=== PATIENT | female | born 1935 | race American Indian/Alaskan Native ===

== ENCOUNTER 2016-11-18 06:08 | Day surgery (SDC) | payer MEDICARE ==
[~2016-11-18 06:08] MED LIST: TETRACAINE 0.5% OS SCH
[2016-11-18] MEDS ORDERED: VERSED ONE (07:21)
[2016-11-18] MEDS ORDERED: SUBLIMAZE ONE (07:22)
[2016-11-18] MEDS: AK-Dilate OS SCH ×3 (07:25→07:35)
[2016-11-18] MEDS: VIGAMOX OS SCH ×3 (07:25→07:35)
[2016-11-18] MEDS: MYDRIACYL OS SCH ×3 (07:25→07:35)
--- NOTE | 2016-11-18 07:25 | Anesthesia Consultation ---
Anesthesia Consult and Med Hx Date of service: 11/18/16 - Airway Anesthetic Teeth Evaluation: Dentures, Edentulous ROM Head & Neck: Adequate Mental/Hyoid Distance: Adequate Mallampati Class: Class II Intubation Access Assessment: Probably Good - Pulmonary Exam CTA: Yes - Cardiac Exam Cardiac Exam: RRR - Pre-Operative Health Status ASA Pre-Surgery Classification: ASA3 Proposed Anesthetic Plan: MAC - Pulmonary Hx Smoking: No Hx Sleep Apnea: No - Cardiovascular System Hx Hypertension: Yes (FOR 20+ YRS, DR. WATKINS- PCP) - Central Nervous System Hx Psychiatric Problems: No - Gastrointestinal Hx Gastroesophageal Reflux Disease: Yes - Other Systems Hx Alcohol Use: No Hx Substance Use: No Hx Cancer: Yes ([facility], DX: [place] 1995)
--- NOTE | 2016-11-18 07:26 | Anesthesia Day of Surgery ---
Anesthesia Day of Surgery - Day of Surgery Patient Examined: Yes Patient H&P Reviewed: Yes Patient is NPO: Yes
[2016-11-18] MEDS ORDERED: NACL P/F VIAL (10 ML) 10 ML ONE (08:08)
[2016-11-18] MEDS ORDERED: ADRENALINE P/F IO ONE (08:20)
--- NOTE | 2016-11-18 09:17 | Operative Report ---
Operative Report Operative Report: PATIENT'S NAME: DATE OF : DATE OF SURGERY: 11/18/2016 PREOPERATIVE DIAGNOSIS: Cataract and Astigmatism left Eye POSTOPERATIVE DIAGNOSIS: Same OPERATIVE PROCEDURE: Phacoemulsification with intraocular lens implantation, left eye Toric SURGEON: Chantal Steward M.D. LENS: [id number] 19.0 at 30 ANESTHESIA: Monitored anesthesia care in combination with topical and intracameral anesthesia because of the established specific risk of reflux, arrhythmias, or anxiety attacks associated with ocular manipulation, as well as the difficulty of the floor clerk to manage such potentially catastrophic events while simultaneously attempting to complete the surgical procedure and was deemed necessary for the patient's safety to have a Nurse Medical Instructor present during the procedure whenever possible. A Nurse Medical Instructor was utilized to regulate the intravenous sedation of the patient so the patient was cooperative yet not asleep in order for the patient to successfully maintain fixation of the eye on the operating light of the microscope. COMPLICATIONS: No surgical complications. No blood loss. ALLERGIES:No known drug allergies PROGNOSIS: Excellent INDICATIONS FOR SURGERY: The patient is undergoing surgery in the hopes of eliminating or improving these visual difficulties. PROCEDURE: After arriving at the surgery center, the patient was given topical anesthetic and dilating drops, as noted in the record. The patient was then taken into the operating room and given more anesthetic drops. The eyelids , lashes, and lid margins were scrubbed with Betadine solution, and the patient was draped. The Nurse Medical Instructor administered IV sedation and monitored the patient during the procedure. A speculum was placed between the eyelids, and the patient was asked to fixate on the light of the microscope. The patient has been noted to have pre-existing astigmatism as well as a concern to be left with as little astigmatism as possible after surgery in order to improve their uncorrected visual acuity after surgery.~ They have, therefore, elected to have our option for astigmatism management and have signed a waiver acknowledging their understanding of the process, its benefits and risks, and wish to proceed with this option. Based on the preoperative evaluation of the topography of their corneal mapping of astigmatism, the wound orientation, wound size, and use of a relaxing incision have been utilized to minimize their post operative astigmatism. In some cases a toric, or astigmatic , intraocular lens implant may be used in conjunction with a relaxing incision or in place of one. When an astigmatic lens is used, preoperative evaluation of the topography with careful planning of the lens position and power of the astigmatic correction by lens are all done. ~The calculation of the lens power for the astigmatic correction and the lens orientation of the astigmatic lens is performed separately and subsequently from the normal lens power calculation for the standard cataract lens power needed for standard surgery without astigmatism management. ~In fact, the toric lens power calculation can not be done until the standard lens power calculations are performed and finished - so that is a totally separate part of the preoperative planning. The eye was then fixated with a round stark, which would damage the conjunctival tissues or vessel, and a stab incision was made in the peripheral clear cornea into the anterior chamber. Viscoelastic was next used to fill the anterior chamber. The eye was once again fixated with the round stark and a keratome was used make an incision in clear cornea peripherally on my right hand side temporally. Hydrodissection was carried out utilizing a U-shaped cannula and balanced salt solution to delineate the cortical material from the capsule and the nucleus from the cortical material. The phaco tip was introduced into the eye and used to remove the anterior cortical material in the area of the capsulotomy. Then the phaco tip was buried into the nucleus, and a chopping instrument was introduced into the eye and used to provide countertraction in the nucleus between this instrument and the phaco tip fracturing the nucleus. This procedure was repeated multiple times, providing multiple small segments of the lens, and then the phaco tip was used to remove each of these segments. An I/A tip was then used to remove the remaining cortex. An one-piece, acrylic intraocular lens was then placed into an inserting cartridge. The tip of the inserting cartridge was introduced into the keratome incision and into the anterior chamber. The implant was gently advanced through the cartridge and into the eye, where it unfolded, and both haptics were placed in the capsular bag, where it centered nicely and appeared to be well fixated. Prior to prepping the patient, the patient was asked to sit up on the operative bed and look across the room. ~Utilizing a special marking instrument, the cardinal meridians at 3:00, 6:00, and 9:00 were marked with Gentian thad.~ These leach were used later in the surgery as reference leach to identify the proper location of the axis for the placement of the astigmatic, or toric, intraocular lens.~ The axis was marked with Gentian thad prior to entering the eye.~ After placement of the intraocular lens implant and removal of the viscoelastic from both the capsular bag and anterior chamber, the lens was positioned so it was perfectly aligned along this axis. The orientation was rechecked once the wounds were hydrated and the integrity of the wounds was verified. After placement of the intraocular lens, the I~and~A handpiece was placed back into the eye and used to remove the viscoelastic, including viscoelastic that was behind the optic of the intraocular lens. The anterior chamber was then filled with balanced salt solution, and hydration of the wound was used to cause swelling of the wound and more appropriate watertight closure. When the wound was found to be firm, the patient was asked to comment on how bright the light was. If there was no light perception at all or if the light was substantially dimmer than during the rest of the surgery, the amount of fluid in the eye was decompressed to lower the intraocular pressure until the patient could see the bright light again. This was done to avoid any damage or decreased blood flow to the optic nerve. MEDICATIONS APPLIED AT END OF SURGERY: One drop vigamox and Pred Forte The patient was given a shield to wear at night and was instructed not to rub or push on the eye. DISCHARGE SUMMARY: The patient was released in stable condition. The patient and those with the patient were given a written sheet of postoperative instructions and counseling on any abnormal laboratory studies. The patient is to see us tomorrow for follow-up in the office and is to call immediately for any difficulties. Chantal Steward M.D. Date
--- NOTE | 2016-11-18 09:18 | Short Stay Summary ---
Short Stay Documentation Date of service: 11/18/16 - History H&P: obtained from office - Allergies and Medications Current Medications: Allergies No Known Allergies Allergy (Unverified 01/14/14 10:47) Home Medications Medication Instructions Recorded Confirmed Last Taken Type Hydroxychloroquine [Plaquenil] 200 mg PO BID 03/08/16 11/15/16 11/17/16 History Latanoprost 0.005% [Xalatan 0.005%] 1 drop OP QPM 03/08/16 11/15/16 11/17/16 History Ranitidine HCl [Zantac 150 MG TAB] 150 mg PO BID 03/08/16 11/15/16 11/17/16 History amLODIPine [Norvasc] 5 mg PO DAILY 03/08/16 11/15/16 11/17/16 History Active Medications Moxifloxacin HCl (Vigamox) 1 drops OS Q5MIN LIONEL Stop: 11/20/16 06:01 Last Admin: 11/18/16 07:35 Dose: 1 drops Phenylephrine HCl (Ak-Dilate) 1 drops OS Q5MIN LIONEL Stop: 11/18/16 23:59 Last Admin: 11/18/16 07:35 Dose: 1 drops Prednisolone Acetate (Pred Forte 1%) 1 drops OS QID LIONEL Tetracaine HCl (Tetracaine 0.5%) 1 drops OS ONCE LIONEL Stop: 11/18/16 23:59 Last Admin: 11/18/16 07:25 Dose: 1 drops Tropicamide (Mydriacyl) 1 drops OS Q5MIN LIONEL Stop: 11/18/16 23:59 Last Admin: 11/18/16 07:35 Dose: 1 drops - Brief post op/procedure progress note Date of procedure: 11/18/16 Pre-op diagnosis: cataract and astigmatism left eye Post-op diagnosis: same Procedure: Phacoemulsification with toric lens insertion left eye Anesthesia: MAC Surgeon: CYN RUBI Estimated blood loss: none Pathology: none Condition: stable - Disposition Condition at discharge: Good Disposition: DC-01 TO HOME OR SELFCARE - Discharge Diagnoses (1) Astigmatism of left eye Status: Resolved Qualifiers: Astigmatism type: regular Qualified Code(s): H52.222 - Regular astigmatism , left eye (2) Cataract Status: Resolved Qualifiers: Age-related cataract type: nuclear Infantile/juvenile cataract type: I Traumatic cataract type: T Secondary cataract type: S Laterality: left Short Stay Discharge Plan Follow up with: RAY WATKINS MD [Primary Care Provider] - 7 Days Forms: [facility]
--- NOTE | 2016-11-18 09:19 | Post Anesthesia Evaluation ---
- Post Anesthesia Evaluation Patient Participated: Yes Airway Patent: Yes Stable Respiratory Function: Yes Nausea/Vomiting: No Temp > 96.8F: Yes Pain Manageable: Yes Adequeate Hydration: Yes Anesthesia Complications: No
[2016-11-18] MEDS ORDERED: PRED FORTE 1% OS SCH (10:00)
[2016-11-18] MEDS ORDERED: ADRENALINE P/F ONE (10:00)
[2016-11-18 18:40] VITALS: BP 136/80
== END 2016-11-18 09:20 | disposition home or self-care (01) ==
LOC: OR 06:08
DX: H26.9 Unspecified cataract (principal); H52.202 Unspecified astigmatism, left eye; M19.90 Unspecified osteoarthritis, unspecified site; I10 Essential (primary) hypertension; K21.9 Gastro-esophageal reflux disease without esophagitis; Z79.899 Other long term (current) drug therapy; Z85.038 Personal history of other malignant neoplasm of large intestine
CPT/HCPCS: 66984; J0171; J2250; J3010; V2630

== ENCOUNTER 2017-06-01 13:50 | Outpatient (CLI) | payer MEDICARE ==
--- NOTE | 2017-06-01 15:45 | XRay Report ---
FINAL REPORT EXAM: XR SPINE CERVICAL 4-5V HISTORY: NUMBNESS, Tingling TECHNIQUE: Five views cervical spine. PRIORS: None currently available. FINDINGS: Grade 1 posterior subluxations C4-C6. severe degenerative discs at C3-C7. Suspect ankylosis at C4-C6. There straightening of the normal lordotic alignment. There may be some mild grade 1 posterior subluxations at C4-C6. Mild grade 1 anterior subluxation at C7-T1 and mild grade 1 posterior subluxation at C3-C4. No fracture. Prevertebral soft tissues are unremarkable. Bilateral neural foraminal narrowing identified. No scoliosis. No suspicious osseous lesions. No vertebral anomalies. Lateral masses of C1 are aligned with C2. IMPRESSION: Multilevel degenerative discs. Suspect ankylosis at C4-C6.
--- NOTE | 2017-06-09 18:06 | Vascular Lab Report ---
CAROTID DUPLEX STUDY: RIGHT PSVEDV CCA PROX:[id number] CCA DIST:5414 ICA PROX:5415 ICA MID:5117 ICA DIST:9231 ECA: 33 VERT: 39 12 LEFT PSVEDV CCA PROX:8020 CCA DIST:5415 ICA PROX:6916 ICA MID:5618 ICA DIST:8730 ECA: 50 VERT: 33 9 REASON FOR EXAM: Numbness and tingling. COMMENTS ON THE RIGHT: Doppler frequency analysis is consistent with 16 to 49 percent diameter reduction of the internal carotid artery. Minimal amount of plaque is seen. The common carotid artery is patent. The external carotid artery is patent. The vertebral artery has antegrade flow. COMMENTS ON THE LEFT: Doppler frequency analysis is consistent with 16 to 49 percent diameter reduction of the internal carotid artery. Minimal amount of plaque is seen. The common carotid artery is patent. The external carotid artery is patent. The vertebral artery has antegrade flow. IMPRESSION: Less than 50% diameter reduction in the internal carotid arteries bilaterally.
== END 2017-06-01 13:51 | disposition home or self-care (01) ==
LOC: VAS 13:50
PROVIDERS: ATTEND Internal Medicine
DX: I65.23 Occlusion and stenosis of bilateral carotid arteries (principal); S13.150A Subluxation of C4/C5 cervical vertebrae, initial encounter; S13.160A Subluxation of C5/C6 cervical vertebrae, initial encounter; S13.140A Subluxation of C3/C4 cervical vertebrae, initial encounter; M50.31 Other cervical disc degeneration, high cervical region; X58.XXXA Exposure to other specified factors, initial encounter; Y93.89 Activity, other specified; Y92.89 Other specified places as the place of occurrence of the external cause; Y99.8 Other external cause status
CPT/HCPCS: 72050; 93880

== ENCOUNTER 2019-02-08 09:20 | Outpatient (CLI) | payer MEDICARE ==
--- NOTE | 2019-02-08 13:36 | Mammography Report ---
DIGITAL SCREENING MAMMOGRAM WITH CAD, 02/08/2019 INDICATION: Routine screening mammography. TECHNIQUE: Digital bilateral 2D mammography was obtained in the craniocaudal and mediolateral obliq ue projections. This examination was interpreted with the benefit of Computer-Aided Detection analysi s. COMPARISON: 02/07/2018 FINDINGS: Breast Density: There are scattered areas of fibroglandular density. There is no evidence of dominant mass, suspicious calcifications or architectural distortion in eithe r breast. A 6 mm . benign right outer calcified mass is new compared to the last exam. IMPRESSION: No mammographic evidence of malignancy. Follow up recommendation: Routine yearly BI-RADS Category 2: Benign. A "normal" or negative report should not discourage follow up or biopsy of a clinically significant f inding. A written summary of these findings will be mailed to the patient. The patient will be entered into a mammography reporting system which will generate a reminder letter for the patient's next appointmen t at the appropriate interval. The [employer] recommends yearly mammograms starting at age 40 and continuing as l cintia as a woman is in good health. Breast MRI is recommended for women with an approximate 20-25% or greater lifetime risk of breast cancer, including women with a strong family history of breast or ova herson cancer or who have been treated for Hodgkin's disease. Signer Name: Davin Rayo MD Signed: 02/08/2019 1:32 PM Workstation Name: [id number]
== END 2019-02-08 09:21 | disposition home or self-care (01) ==
LOC: MAMMO 09:20
PROVIDERS: ATTEND Internal Medicine
DX: Z12.31 Encounter for screening mammogram for malignant neoplasm of breast (principal); K21.9 Gastro-esophageal reflux disease without esophagitis; I10 Essential (primary) hypertension; M19.90 Unspecified osteoarthritis, unspecified site
CPT/HCPCS: 77067

== ENCOUNTER 2020-02-22 10:30 | Outpatient (CLI) | payer MEDICARE ==
--- NOTE | 2020-02-25 08:34 | Mammography Report ---
DIGITAL SCREENING MAMMOGRAM WITH CAD, 02/22/2020 CLINICAL INFORMATION / INDICATION: Routine screening mammography. TECHNIQUE: Digital bilateral 2D mammography was obtained in the craniocaudal and mediolateral obliqu e projections. This examination was interpreted with the benefit of Computer-Aided Detection analysis . COMPARISON: 02/08/2019, 02/07/2018 FINDINGS: Breast Density: There are scattered areas of fibroglandular density. No dominant mass, suspicious calcifications, or architectural distortion in either breast. IMPRESSION: No mammographic evidence of malignancy. Follow up recommendation: Routine yearly BI-RADS Category 1: Negative. A "normal" or negative report should not discourage follow up or biopsy of a clinically significant f inding. A written summary of these findings will be mailed to the patient. The patient will be entered into a mammography reporting system which will generate a reminder letter for the patient's next appointmen t at the appropriate interval. The [employer] recommends yearly mammograms starting at age 40 and continuing as l cintia as a woman is in good health. Breast MRI is recommended for women with an approximate 20-25% or greater lifetime risk of breast cancer, including women with a strong family history of breast or ova herson cancer or who have been treated for Hodgkin's disease. Signer Name: Donn Mendez MD Signed: 02/25/2020 8:29 AM Workstation Name: [id number]
== END 2020-02-22 10:31 | disposition home or self-care (01) ==
LOC: MAMMO 10:30
PROVIDERS: ATTEND Internal Medicine
DX: Z12.31 Encounter for screening mammogram for malignant neoplasm of breast (principal)
CPT/HCPCS: 77067

== ENCOUNTER 2021-02-23 08:57 | Outpatient (CLI) | payer MEDICARE ==
--- NOTE | 2021-02-24 08:18 | Mammography Report ---
DIGITAL SCREENING MAMMOGRAM WITH CAD, 02/23/2021 CLINICAL INFORMATION / INDICATION: Routine screening mammography. SCREENING MAMMOGRAM TECHNIQUE: Digital bilateral 2D mammography was obtained in the craniocaudal and mediolateral obliqu e projections. This examination was interpreted with the benefit of Computer-Aided Detection analysis . COMPARISON: 02/22/2020 FINDINGS: Breast Density: The breasts are heterogeneously dense, which may obscure small masses. No dominant mass, suspicious calcifications, or architectural distortion in either breast. Partially calcified nodule in the posterior depth right breast again noted. IMPRESSION: No mammographic evidence of malignancy. Follow up recommendation: Routine yearly BI-RADS Category 2: Benign. A "normal" or negative report should not discourage follow up or biopsy of a clinically significant f inding. A written summary of these findings will be mailed to the patient. The patient will be entered into a mammography reporting system which will generate a reminder letter for the patient's next appointmen t at the appropriate interval. The [employer] recommends yearly mammograms starting at age 40 and continuing as l cintia as a woman is in good health. Breast MRI is recommended for women with an approximate 20-25% or greater lifetime risk of breast cancer, including women with a strong family history of breast or ova herson cancer or who have been treated for Hodgkin's disease. Signer Name: Parviz Rick MD Signed: 02/24/2021 8:14 AM Workstation Name: [id number]
== END 2021-02-23 08:58 | disposition home or self-care (01) ==
LOC: MAMMO 08:57
PROVIDERS: ATTEND Internal Medicine
DX: Z12.31 Encounter for screening mammogram for malignant neoplasm of breast (principal); N63.10 Unspecified lump in the right breast, unspecified quadrant; N64.89 Other specified disorders of breast
CPT/HCPCS: 77067